=== PATIENT | female | born 1970 | race Caucasian/White ===

== ENCOUNTER 2018-05-09 20:17 | Inpatient (IN) ==
[2018-05-09] MEDS ORDERED: 0.9 % Sodium Chloride 1,000 ML IVC ONE (21:40)
[2018-05-09] MEDS ORDERED: Metoclopramide 10 MG/2 ML VIAL IVP ONE (21:42)
[2018-05-09] MEDS ORDERED: Ondansetron 4 MG/2 ML VIAL IVP ONE (21:42)
[2018-05-09] MEDS ORDERED: cefTRIAXone 1,000 MG in Water for inj. (sterile) 20 ML 10 ML IVPB ONE (21:44)
[2018-05-09 22:28] LABS: Clarity,Urine Clear (Clear); Color,Urine Orange (Yellow)
[2018-05-09 22:33] LABS: RBC,Urine 0-3 per hpf (0-3)
[2018-05-09 22:34] LABS: Bacteria,Urine Few per hpf (None-Few); Hyaline Casts,Urine None Seen per lpf (None-Few); Squamous Epithelial Cell,Urine Few per lpf (None-Few)
[2018-05-09] MEDS ORDERED: Isovue-370 500 ML BOTTLE IVP ONE (22:44)
[2018-05-09 22:53] LABS: Basophils % 0.1 %; Eosinophils % 0.4 %; Hematocrit 39.2 % (35.3-44.9); Hemoglobin 13.2 g/dL (11.5-15.4); Immature Granulocytes % 0.5 % (0-4); Lymphocytes # 0.4 K/mcL (0.6-4.6); Lymphocytes % 4.7 %; Mean Corpuscular HGB Conc 33.7 g/dL (31.6-35.5); Mean Corpuscular Hemoglobin 30.8 pg (28.0-33.3); Mean Corpuscular Volume 91.6 fL (83.0-100.0); Mean Platelet Volume 9.8 fL (9.4-12.4); Monocytes # 0.5 K/mcL (0.0-1.3); Monocytes % 5.8 %; Neutrophils # 7.2 K/mcL (1.6-8.9); Platelet Count 243 K/mcL (140-400); Red Blood Count 4.28 M/mcL (3.82-4.97); Red Cell Distribution Width 12.5 % (11.5-14.5); Segmented Neutrophils % 88.5 %
[2018-05-09 22:59] LABS: Alanine Aminotransferase 219 Units/L (7-52); Albumin 4.3 g/dL (3.5-5.7); Albumin/Globulin Ratio 1.3 (1.1-2.2); Alkaline Phosphatase 188 Units/L (34-104); Aspartate Amino Transferase 229 Units/L (13-39); BUN/Creatinine Ratio 11 (6-26); Bilirubin,Direct 0.2 mg/dL (0.0-0.2); Bilirubin,Indirect 0.6 mg/dL (0.0-1.2); Bilirubin,Total 0.8 mg/dL (0.3-1.0); Blood Urea Nitrogen 8 mg/dL (6-20); Calcium 9.9 mg/dL (8.6-10.3); Carbon Dioxide 23 mEq/L (23-29); Chloride 99 mEq/L (98-107); Creatine Kinase 24 Units/L (30-223); Globulin 3.4 g/dL (2.4-3.5); Glucose 85 mg/dL (70-105); Osmolality,Calculated 276 (280-300); Potassium 3.6 mEq/L (3.5-5.1); Sodium 134 mEq/L (136-145); Total Protein 7.7 g/dL (6.4-8.9); eGFR For Non-African Americans > 60 (> 60)
[2018-05-09 23:00] LABS: Troponin I < 0.03 ng/mL (< 0.04)
[2018-05-09 23:12] LABS: INR 1.3; Prothrombin Time 14.2 Seconds (9.4-12.1); Thyroid Stimulating Hormone 0.956 mcIU/mL (0.340-5.600)
[2018-05-09 23:15] LABS: Activated Partial Thrombo Time 32.6 Seconds (26.0-36.0)
--- NOTE | 2018-05-09 23:51 | Emergency Department Note ---
Addendum entered and electronically signed by Tiffani Johnson 05/10/18 03:55: Due to patient's hypotension after adequate fluid bolus, a central line was placed. Date: 05/10/2018 Time: 309 Indication: Hemodynamic monitoring/Intravenous access Resident: Dr. Tiffani Johnson Attending: Dr. Dylan Rodriguez A time-out was completed verifying correct patient, procedure, site, posit ioning, and special equipment. The patient was placed in a dependent position appropriate for central line placement based on the vein to be cannulated. The patients right neck was prepped and draped in sterile fashion. 1% Lidocaine was used to anesthetize the surrounding skin area. A triple lumen 9-[place] Cordis catheter was introduced into the the internal jugular using the Seldinger technique and under ultrasound guidance. The catheter was threaded smoothly over the guide wire and appropriate blood return was obtained. Each lumen of the catheter was evacuated of air and flushed with sterile saline. The catheter was then sutured in place to the skin and a sterile dressing applied. Perfusion to the extremity distal to the point of catheter insertion was checked and found to be adequate. Attending was present for the entire procedure. Estimated Blood Loss: 2mL The patient tolerated the procedure well and there were no complications. CXR is pending at this time. Original Note: Disposition Clinical Impression: Pyelonephritis Sepsis Qualifiers: Sepsis type: sepsis due to unspecified organism Qualified Code(s): A41.9 - Sepsis, unspecified organism Altered mental status Qualifiers: Altered mental status type: unspecified Qualified Code(s): R41.82 - Altered mental status, unspecified Disposition: Admitted As Inpatient Time of Disposition: 02:13 General Adult HPI - General Chief complaint: ED Dizziness Stated complaint: "Just feel dizzy with a UTI" Time Seen by Provider: 05/09/18 21:02 Source: patient, family Limitations: no limitations Nursing Notes Reviewed: Yes Vital Signs Reviewed: Yes - History of Present Illness HPI Narrative: 47 yo female with PMHx of recent UTI with administration of macrobid and pyridium. Daughter states the patient has not improved with demonstration of the antibiotics and has continued to get worse. The patient has significant back pain and abdominal pain, has been sleeping more, and has not been acting like herself. Daughter states that this has never happened when her mother has had a urinary tract infection before and she became concerned. The patient also has been nauseous and vomiting. Patient is unable to answer questions due to pain and altered mental status at this time. Pain Scale: 0 - Related Data Home Medications Medication Instructions Recorded Confirmed RX: No Known Home Drugs 05/10/18 05/10/18 Allergies Allergy/AdvReac Type Severity Reaction Status Date / Time No Known Allergies Allergy Verified 05/10/18 17:40 Review of Systems: As Per HPI Limitations: ROS unobtainable due to patients medical condition Constitutional: Reports: fever Gastrointestinal: Reports: abdominal pain, nausea, vomiting Genitourinary: Reports: dysuria Musculoskeletal: Reports: back pain Integumentary: Denies: rash Neurological: Reports: headache, paresthesias (Bilateral hand) Past Medical History - Past Medical History Source: obtained from family Medical history: Reports: no medical history Psychiatric history: Reports: no psych history - Social History Smoking Status: Current every day smoker Alcohol use: Reports: rarely Drug use: Reports: marijuana Physical Exam - General Limitations: altered mental status General appearance: alert, other (Moderate discomfort) - Head Head exam: atraumatic, normocephalic - Eye Eye exam: Present: normal appearance, PERRL, EOMI - ENT ENT exam: normal exam, mucous membranes moist - Neck Neck exam: Present: normal inspection. Absent: tenderness, meningismus, lymphadenopathy - Chest Chest inspection: Present: normal inspection. Absent: tenderness - Respiratory Respiratory exam: Present: normal lung sounds bilaterally - Cardiovascular Cardiovascular exam: Present: normal rhythm, tachycardia - Abdominal Exam Abdominal exam: Present: soft, tenderness. Absent: distention, guarding, rebound, rigidity, Bowie's sign, tenderness at McBurney's Point Abdominal tenderness: Present: suprapubic - Extremities Exam Extremities exam: Present: normal inspection. Absent: tenderness, pedal edema - Back Exam Back exam: Present: CVA tenderness (R). Absent: CVA tenderness (L) - Neurological Exam Neurological exam: Present: alert - Skin Skin exam: Present: warm, dry, intact Course Vital Signs Temperature 99.6 F 05/09/18 20:47 Pulse Rate 106 05/09/18 20:47 Respiratory Rate 24 05/09/18 20:47 Blood Pressure 105/69 05/09/18 20:47 O2 Sat by Pulse Oximetry 100 05/09/18 20:47 Temperature 98.5 F 05/11/18 03:48 Pulse Rate 64 05/11/18 06:10 Respiratory Rate 16 05/11/18 06:10 Blood Pressure 100/67 05/11/18 06:10 O2 Sat by Pulse Oximetry 94 05/11/18 06:10 Oxygen Delivery Oxygen Delivery Room Air Procedures - Lumbar Puncture Consent Obtained: written consent Time Out Performed: Yes Patient Position: upright Skin Prep: Povidone-Iodine 1% Local Anesthetic: lidocaine 1% Amount of anesthesia used (mL): 4 Spinal Needle Gauge: 20G Interspace Used: L3-L4 Fluid Initially Obtained: clear Complications: bleeding Medical Decision Making - MDM Narrative Medical decision making narrative: Patient appears to be in significant pain and is slightly altered. She does meet SIRS criteria with fever and tachycardia. We will obtain basic lab work, EKG, troponin, urinalysis. 2300 - lab work is remarkable for elevated liver enzymes. Urine does not demonstrate signs of infection but this could be due to her use of antibiotics. We will obtain a CT scan of the abdomen to look for kidney stone, abscess, other sources of infection. 0025 - CT scan of the abdomen did not demonstrate abscess, stone, or other source of infection. Pt is still febrile and tachycardic but is more alert and answers questions appropriately now. Pt is agreeable with admission at this time and is also agreeable with LP as there is no clear source of infection. 0125 - LP successful and sent to lab at this time. Rocephin has been started. 0200 - LP results are negative for meningitis. Hospitalist has been paged for admission. 0210 - Pt has been admitted to the hospitalist at this time for likely pyelonephritis. - Medical Records Medical records reviewed: Yes I reviewed the patient's medical records. - Lab Data Lab results reviewed: Yes I reviewed the patient's lab results. Result diagrams: 05/09/18 22:17 05/10/18 11:26 Lab Results 05/09/18 05/09/18 05/09/18 Range/Units 21:36 22:17 22:17 WBC (4.3-11.1) K/mcL RBC (3.82-4.97) M/mcL Hgb (11.5-15.4) g/dL Hct (35.3-44.9) % MCV (83.0-100.0) fL MCH (28.0-33.3) pg MCHC (31.6-35.5) g/dL RDW (11.5-14.5) % Plt Count (140-400) K/mcL MPV (9.4-12.4) fL Immature Gran % (0-4) % Seg Neutrophils % % Lymphocytes % % Monocytes % % Eosinophils % % Basophils % % Neutrophils # (1.6-8.9) K/mcL Lymphocytes # (0.6-4.6) K/mcL Monocytes # (0.0-1.3) K/mcL Eosinophils # (0.0-0.6) K/mcL Basophils # (0.0-0.2) K/mcL PT 14.2 H (9.4-12.1) Seconds INR 1.3 APTT 32.6 (26.0-36.0) Seconds Sodium (136-145) mEq/L Potassium (3.5-5.1) mEq/L Chloride (98-107) mEq/L Carbon Dioxide (23-29) mEq/L BUN (6-20) mg/dL Creatinine (0.60-1.20) mg/dL Est GFR ( Amer) (> 60) Est GFR (Non-Af Amer) (> 60) BUN/Creatinine Ratio (6-26) Glucose (70-105) mg/dL Calculated Osmolality (280-300) Lactic Acid (0.5-2.2) mmol/L Calcium (8.6-10.3) mg/dL Total Bilirubin (0.3-1.0) mg/dL Direct Bilirubin (0.0-0.2) mg/dL Indirect Bilirubin (0.0-1.2) mg/dL AST (13-39) Units/L ALT (7-52) Units/L Alkaline Phosphatase (34-104) Units/L Ammonia 43 (16-53) mcmol/L Creatine Kinase (30-223) Units/L Troponin I (< 0.04) ng/mL Serum Total Protein (6.4-8.9) g/dL Albumin (3.5-5.7) g/dL Globulin (2.4-3.5) g/dL Albumin/Globulin Ratio (1.1-2.2) TSH (0.340-5.600) mcIU/mL Ur Specimen Adequacy See below A Urine Color [place] A (Yellow) Urine Clarity Clear (Clear) Urine pH TNP Ur Specific [place] TNP Urine Protein TNP Urine Glucose (UA) TNP Urine Ketones TNP Urine Blood TNP Urine Nitrite TNP Urine Bilirubin TNP Urine Urobilinogen TNP Ur Leukocyte Esterase TNP Urine Microscopic RBC 0-3 (0-3) per hpf Ur Squamous Epith Cells Few (None-Few) per lpf Urine Bacteria Few (None-Few) per hpf Hyaline Casts None Seen (None-Few) per lpf Ur Culture Indicated? NO (NO) CSF Volume mL CSF Appearance (Clear) CSF Color (Colorless) CSF RBC (0.000 - 0.002) M/mcL CSF Tot Nucleated Cells (0-5) TNC/mcL CSF Seg Neutrophils CSF Band Neutrophils % CSF Lymphocytes % CSF Monocytes % CSF Eosinophils % CSF Basophils % CSF Other Cells % CSF Glucose (40-70) mg/dL CSF Xanth Comm (Not Observe) CSF Total Protein (15-45) mg/dL 05/09/18 05/09/18 05/09/18 Range/Units 22:17 22:17 22:53 WBC 8.1 (4.3-11.1) K/mcL RBC 4.28 (3.82-4.97) M/mcL Hgb 13.2 (11.5-15.4) g/dL Hct 39.2 (35.3-44.9) % MCV 91.6 (83.0-100.0) fL MCH 30.8 (28.0-33.3) pg MCHC 33.7 (31.6-35.5) g/dL RDW 12.5 (11.5-14.5) % Plt Count 243 (140-400) K/mcL MPV 9.8 (9.4-12.4) fL Immature Gran % 0.5 (0-4) % Seg Neutrophils % 88.5 % Lymphocytes % 4.7 % Monocytes % 5.8 % Eosinophils % 0.4 % Basophils % 0.1 % Neutrophils # 7.2 (1.6-8.9) K/mcL Lymphocytes # 0.4 L (0.6-4.6) K/mcL Monocytes # 0.5 (0.0-1.3) K/mcL Eosinophils # 0.0 (0.0-0.6) K/mcL Basophils # 0.0 (0.0-0.2) K/mcL PT (9.4-12.1) Seconds INR APTT (26.0-36.0) Seconds Sodium 134 L (136-145) mEq/L Potassium 3.6 (3.5-5.1) mEq/L Chloride 99 (98-107) mEq/L Carbon Dioxide 23 (23-29) mEq/L BUN 8 (6-20) mg/dL Creatinine 0.73 (0.60-1.20) mg/dL Est GFR ( Amer) > 60 (> 60) Est GFR (Non-Af Amer) > 60 (> 60) BUN/Creatinine Ratio 11 (6-26) Glucose 85 (70-105) mg/dL Calculated Osmolality 276 L (280-300) Lactic Acid 0.7 (0.5-2.2) mmol/L Calcium 9.9 (8.6-10.3) mg/dL Total Bilirubin 0.8 (0.3-1.0) mg/dL Direct Bilirubin 0.2 (0.0-0.2) mg/dL Indirect Bilirubin 0.6 (0.0-1.2) mg/dL AST 229 H (13-39) Units/L ALT 219 H (7-52) Units/L Alkaline Phosphatase 188 H (34-104) Units/L Ammonia (16-53) mcmol/L Creatine Kinase 24 L (30-223) Units/L Troponin I < 0.03 (< 0.04) ng/mL Serum Total Protein 7.7 (6.4-8.9) g/dL Albumin 4.3 (3.5-5.7) g/dL Globulin 3.4 (2.4-3.5) g/dL Albumin/Globulin Ratio 1.3 (1.1-2.2) TSH 0.956 (0.340-5.600) mcIU/mL Ur Specimen Adequacy Urine Color (Yellow) Urine Clarity (Clear) Urine pH Ur Specific [place] Urine Protein Urine Glucose (UA) Urine Ketones Urine Blood Urine Nitrite Urine Bilirubin Urine Urobilinogen Ur Leukocyte Esterase Urine Microscopic RBC (0-3) per hpf Ur Squamous Epith Cells (None-Few) per lpf Urine Bacteria (None-Few) per hpf Hyaline Casts (None-Few) per lpf Ur Culture Indicated? (NO) CSF Volume mL CSF Appearance (Clear) CSF Color (Colorless) CSF RBC (0.000 - 0.002) M/mcL CSF Tot Nucleated Cells (0-5) TNC/mcL CSF Seg Neutrophils CSF Band Neutrophils % CSF Lymphocytes % CSF Monocytes % CSF Eosinophils % CSF Basophils % CSF Other Cells % CSF Glucose (40-70) mg/dL CSF Xanth Comm (Not Observe) CSF Total Protein (15-45) mg/dL 05/10/18 Range/Units 01:15 WBC (4.3-11.1) K/mcL RBC (3.82-4.97) M/mcL Hgb (11.5-15.4) g/dL Hct (35.3-44.9) % MCV (83.0-100.0) fL MCH (28.0-33.3) pg MCHC (31.6-35.5) g/dL RDW (11.5-14.5) % Plt Count (140-400) K/mcL MPV (9.4-12.4) fL Immature Gran % (0-4) % Seg Neutrophils % % Lymphocytes % % Monocytes % % Eosinophils % % Basophils % % Neutrophils # (1.6-8.9) K/mcL Lymphocytes # (0.6-4.6) K/mcL Monocytes # (0.0-1.3) K/mcL Eosinophils # (0.0-0.6) K/mcL Basophils # (0.0-0.2) K/mcL PT (9.4-12.1) Seconds INR APTT (26.0-36.0) Seconds Sodium (136-145) mEq/L Potassium (3.5-5.1) mEq/L Chloride (98-107) mEq/L Carbon Dioxide (23-29) mEq/L BUN (6-20) mg/dL Creatinine (0.60-1.20) mg/dL Est GFR ( Amer) (> 60) Est GFR (Non-Af Amer) (> 60) BUN/Creatinine Ratio (6-26) Glucose (70-105) mg/dL Calculated Osmolality (280-300) Lactic Acid (0.5-2.2) mmol/L Calcium (8.6-10.3) mg/dL Total Bilirubin (0.3-1.0) mg/dL Direct Bilirubin (0.0-0.2) mg/dL Indirect Bilirubin (0.0-1.2) mg/dL AST (13-39) Units/L ALT (7-52) Units/L Alkaline Phosphatase (34-104) Units/L Ammonia (16-53) mcmol/L Creatine Kinase (30-223) Units/L Troponin I (< 0.04) ng/mL Serum Total Protein (6.4-8.9) g/dL Albumin (3.5-5.7) g/dL Globulin (2.4-3.5) g/dL Albumin/Globulin Ratio (1.1-2.2) TSH (0.340-5.600) mcIU/mL Ur Specimen Adequacy Urine Color (Yellow) Urine Clarity (Clear) Urine pH Ur Specific [place] Urine Protein Urine Glucose (UA) Urine Ketones Urine Blood Urine Nitrite Urine Bilirubin Urine Urobilinogen Ur Leukocyte Esterase Urine Microscopic RBC (0-3) per hpf Ur Squamous Epith Cells (None-Few) per lpf Urine Bacteria (None-Few) per hpf Hyaline Casts (None-Few) per lpf Ur Culture Indicated? (NO) CSF Volume 3.5 mL CSF Appearance Clear (Clear) CSF Color Colorless (Colorless) CSF RBC < 0.002 (0.000 - 0.002) M/mcL CSF Tot Nucleated Cells < 3 (0-5) TNC/mcL CSF Seg Neutrophils TNP CSF Band Neutrophils % TNP CSF Lymphocytes % TNP CSF Monocytes % TNP CSF Eosinophils % TNP CSF Basophils % TNP CSF Other Cells % TNP CSF Glucose 67 (40-70) mg/dL CSF Xanth Comm Not Observed (Not Observe) CSF Total Protein 25 (15-45) mg/dL - Radiology Data Radiology results reviewed: Yes I reviewed the patient's radiology results. - EKG Data EKG #1 EKG attestation: Yes I reviewed and interpreted this EKG. EKG results narrative: EKG obtained at 22:14 on 05/09/2018 Heart rate 10 7 bpm, MO interval 141, QRS duration 85, QT 308, QTC 411 Sinus tachycardia without any ST segment elevations or depressions. No other T- wave abnormalities. Unchanged when compared to previous dated 05/24/2017. Critical Care Time Critical Care Time: Yes Total Critical Care Time: 62 Attestation: The high probability of a clinically significant, sudden or life threatening deterioration of the cardiovascular system(s) required my full and direct attention, intervention and personal management. The aggregate critical care time was 62 minutes. This time is in addition to time spent performing reported procedures but includes the following: x Data Review and interpretation x Patient assessment and monitoring of vital signs x Documentation x Medication orders and management Attestation Statement - Attestation Attestation: I, Dylan Rodriguez, examined this patient and my medical decision-making was reviewed with the CLIENT CARE SPECIALIST/PA/Advanced Practice Nurse/Resident Physician. I agree with the documented findings, disposition and treatment plan as described except to the extent set forth below. 47-year-old female brought to emergency department for evaluation of fever and lightheadedness. Daughter states patient was recently diagnosed with urinary tract infection within the past 2-3 days, has been taking nitrofurantoin twice a day since that time without any improvement of her symptoms. Patient had become progressively more weak, fatigued and confused. During evaluation emergency department the patient has a headache, she has a difficult time answering questions appropriately. Daughter is in the room giving history. No other recent trauma or changes in her medications. Patient taking Pyridium at home. Urinalysis shows a possible urinary tract infection however it is not definit lana. CT of the abdomen and pelvis does not show other evidence of acute surgical pathology. CT of the head did not show acute hemorrhage or other abnormality. We obtained a lumbar puncture after a discussion of risks and benefits and verbal and written consent obtained. This did not show evidence of meningitis. I was present during the entire procedure. Patient MedSurg criteria however we did not have an obvious identified source. We gave ceftriaxone treat possible pyelonephritis. She was admitted to the hospitalist. While she was still in the emergency department her blood pressure started to drop. She was given a liter of fluids which mildly improved her blood pressure however she will likely still require vasopressor medications. Central venous catheter was placed after a discussion of the risks and benefits and verbal and written consent obtained. Central line was placed by resident and I was present during the entire procedure. Patient will be admitted to the hospitalist for further care and evaluation.
[2018-05-10] MEDS ORDERED: 0.9 % Sodium Chloride 1,000 ML IVC ONE ×2 (00:27→02:33)
[2018-05-10] MEDS ORDERED: Ibuprofen 600 MG TABLET PO ONE (00:27)
[2018-05-10 01:41] LABS: Red Blood Cell,CSF < 0.002 M/mcL
[2018-05-10] MEDS ORDERED: *HR* FentaNYL (PF) 100 MCG/2 ML VIAL IVP ONE (01:52)
[2018-05-10 02:01] LABS: Glucose,CSF 67 mg/dL (40-70); Total Protein,CSF 25 mg/dL (15-45)
[2018-05-10 02:07] LABS: Appearance,CSF Clear (Clear)
[2018-05-10] MEDS ORDERED: 0.9 % Sodium Chloride 1,000 ML ONE (02:36)
[2018-05-10] MEDS ORDERED: Acetaminophen 325 MG TABLET PO PRN (02:48)
[2018-05-10] MEDS ORDERED: Naloxone 0.4 MG/ML INJ IVP PRN (02:48)
[2018-05-10] MEDS ORDERED: Ringers Solution, Lactated 1,000 ML IVC SCH (03:00)
--- NOTE | 2018-05-10 03:54 | Internal Med History&Physical ---
<Madelyn Magdaleno M - Last Filed: 05/10/18 04:08> Date of Encounter: 05/10/18 Time of Encounter: 03:30 Assessment and Plan (1) Sepsis Current visit: Yes Status: Acute Patient has fevers, tachycardia, tachypnea Likely due to UTI, recently diagnosed 3 days ago, taking macrobid Urine culture and blood cultures pending Lactate normal No other signs of infection; CXR no acute process, LP negative for meningitis Patient became hypotensive despite IVFs, started on levophed S/p 2L IVFs, continue maintenance fluids Continue IV Rocephin for presumed UTI NPO as patient is requiring presser support Qualifiers: Sepsis type: sepsis due to unspecified organism Qualified Code(s): A41.9 - Sepsis, unspecified organism (2) Acute encephalopathy Current visit: Yes Status: Resolved Likely metabolic due to sepsis Resolved. Nonfocal examination, AAOx3 CT head without acute intracranial abnormality Ammonia level and TSH normal, no electrolyte abn LP negative for meningitis Check urine drug screen, acetaminophen level (3) Urinary tract infection Current visit: Yes Status: Acute CT A/P shows no urinary stones, hydronephrosis, or pyelonephritis Received 3 days of Macrobid for UTI dx at urgent care Urine culture pending Continue IV Rocephin Monitor urine output Qualifiers: Urinary tract infection type: acute cystitis Hematuria presence: with hematuria Qualified Code(s): N30.01 - Acute cystitis with hematuria (4) Transaminitis Current visit: Yes Status: Acute No history of liver disease AST 229, ALT 219, alk phos 188. Patient has no history of alcohol abuse Will check liver ultrasound Check hepatitis panel (5) DVT prophylaxis Current visit: Yes Status: Acute SQ heparin Internal Medicine - H&P: HPI Chief complaint: dizzy Admitted From: Emergency Dept History of present illness: Ms. Mario is a 47 year old female with no past medical history presenting with chief complaint of dizziness for 1 day. 3 days ago, patient was diagnosed with a urinary tract infection at urgent care. She states at that time she complains of dysuria and hematuria. Denies abnormal urinary or vaginal discharge. She also had decreased appetite. No diarrhea. She was started on Macrobid and Pyridium. No history of urinary tract infections. Yesterday was day 3 of her antibiotics. She states she woke up feeling dizzy that worsened with movement. Her daughter states that she has not been acting herself. She also complains of lower back pain. She denies any dysuria at this time. She denies abdominal pain. She complains of fevers and chills with temperature as high as 101. She also has nausea but no vomiting. When the patient arrived to the emergency department, she was noted to have altered mental status and was unable to answer questions appropriately. Initial vitals show temperature of 99.6, tachycardia with heart rate 106, respiratory rate 24, normotensive blood pressure. Patient did have a fever of 102.6 and received acetaminophen. Septic workup was initiated. She does have elevated liver enzymes. Urinalysis shows no evidence of infection however she has been on antibiotics for urinary tract infection. Urine culture will be sent. CT abdomen and pelvis was obtained and results showed no acute process, no urinary stones or hydronephrosis. No pyelonephritis. Chest x-ray showed no acute cardiopulmonary abnormality. Head CT was obtained as the patient has new altered mental status. Results showed no acute intracranial abnormality. The patient also had a lumbar puncture done as there is no clear source of infection. Results were negative for meningitis. Patient received a dose of IV Rocephin. The patient became hypotensive and was not fluid responsive. A right IJ vein central line was placed in the emergency department. Patient will be started on levothyroid for blood pressure support. Patient admitted for further management of sepsis secondary to urinary tract infection. Patient was seen and evaluated at bedside. Patient's altered mental status is improved. She is alert and oriented 3. She is answering questions appropriately. She states she does feel better at this time. States dizziness is resolved. She has no other acute complaints. Past Med Surg Social Fam HX - Past Medical History Attestation: Yes The following information was validated with the patient. Source: patient Medical history: no medical history Psychiatric history: no psych history - Social History Smoking Status: Current every day smoker Alcohol use: rarely Drug use: marijuana Internal Medicine - H&P: Meds RX: No Known Home Drugs 05/10/18 [History] Allergy/AdvReac Type Severity Reaction Status Date / Time No Known Allergies Allergy Verified 05/24/17 13:56 All Systems PM: A 10-system review of systems was performed and is negative for pertinent findings except as documented above in the HPI. - Constitutional Constitutional: anorexia, chills, fever(s) - EENT Eyes: no change in vision Nose, mouth and throat: dry mouth, no dysphagia, no nasal congestion, no sore throat - Cardiovascular Cardiovascular ROS IM: no chest pain, no diaphoresis, no dyspnea - Respiratory Respiratory: no cough, no dyspnea - Gastrointestinal Gastrointestinal: nausea, no abdominal pain, no diarrhea, no vomiting - Genitourinary Genitourinary: difficulty voiding, dysuria, hematuria, no vaginal discharge - Musculoskeletal Musculoskeletal ROS IM: back pain, no muscle weakness - Neurological Neurological ROS: confusion, dizziness, no headache(s) - Psychiatric Psychiatric: confusion - Constitutional Vitals: Temp Pulse Resp BP Pulse Ox 98.1 F 77 17 88/67 97 05/10/18 02:35 05/10/18 03:45 05/10/18 03:45 05/10/18 03:45 05/10/18 03:45 General appearance: Present: A&O X 3, pleasant, no acute distress Exam: Head: atraumatic, normocephalic Eyes: PERRL, EOMI, normal conjunctiva, no scleral icterus ENT: dry mucous membranes Neck: trachea midline, right IJ central line present Chest: symmetrical chest rise Cardiovascular: RRR, no murmur Respiratory: Lungs clear to auscultation bilaterally Abdomen: soft, nontender, nondistended Extremities: moves all four extremities, normal capillary refill, no calf tenderness, no pedal edema Neuro: AAOx3, answering questions appropriately, strenght equal bilaterally, CN II-XII intact Psych: normal mood and affect Skin: warm, dry Internal Med - H&P Results - Labs CBC & Chem 7: 05/09/18 22:17 05/09/18 22:17 Labs: Short CBC 05/09/18 Range/Units 22:17 WBC 8.1 (4.3-11.1) K/mcL Hgb 13.2 (11.5-15.4) g/dL Hct 39.2 (35.3-44.9) % Plt Count 243 (140-400) K/mcL Neutrophils # 7.2 (1.6-8.9) K/mcL BMP 05/09/18 22:17 Sodium 134 L Potassium 3.6 Chloride 99 Carbon Dioxide 23 BUN 8 Creatinine 0.73 Glucose 85 Calcium 9.9 Cardiac Enzymes 03/31/19 Range/Units 22:17 Troponin I < 0.03 (< 0.04) ng/mL Liver Function 05/09/18 Range/Units 22:17 Total Bilirubin 0.8 (0.3-1.0) mg/dL Direct Bilirubin 0.2 (0.0-0.2) mg/dL AST 229 H (13-39) Units/L ALT 219 H (7-52) Units/L Alkaline Phosphatase 188 H (34-104) Units/L Albumin 4.3 (3.5-5.7) g/dL Urine 05/09/18 Range/Units 21:36 Urine Color [place] A (Yellow) Urine Clarity Clear (Clear) Urine pH TNP Ur Specific [place] TNP Urine Protein TNP Urine Glucose (UA) TNP - Impressions ITS Impressions Chest X-Ray 05/09/18 21:41 IMPRESSION: No acute abnormality D/ / Leonid Zuniga / Leonid Zuniga Interpreting Provider: Leonid Zuniga Head CT 05/09/18 21:41 IMPRESSION: No acute intracranial abnormality. D/ / Yonny Balderas / Yonny Balderas Interpreting Provider: Yonny Balderas Abdomen/Pelvis CT 05/09/18 22:44 IMPRESSION: 1. No acute process within the abdomen or pelvis. 2. No urinary stones or hydronephrosis. No CT evidence of hydronephrosis or pyelonephritis. D/ / Mark Baldwin MD / Mark Baldwin MD Interpreting Provider: Mark Baldwin MD <Hanny Montoya - Last Filed: 05/10/18 05:30> Date of Encounter: 05/10/18 All Systems PM: A 10-system review of systems was performed and is negative for pertinent findings except as documented above in the HPI. - Constitutional Vitals: Temp Pulse Resp BP Pulse Ox 98.2 F 80 16 95/59 97 05/10/18 04:55 05/10/18 04:55 05/10/18 04:55 05/10/18 04:55 05/10/18 04:55 Internal Med - H&P Results - Labs CBC & Chem 7: 05/09/18 22:17 05/09/18 22:17 Labs: Short CBC 05/09/18 Range/Units 22:17 WBC 8.1 (4.3-11.1) K/mcL Hgb 13.2 (11.5-15.4) g/dL Hct 39.2 (35.3-44.9) % Plt Count 243 (140-400) K/mcL Neutrophils # 7.2 (1.6-8.9) K/mcL BMP 05/09/18 22:17 Sodium 134 L Potassium 3.6 Chloride 99 Carbon Dioxide 23 BUN 8 Creatinine 0.73 Glucose 85 Calcium 9.9 Cardiac Enzymes 05/09/18 Range/Units 22:17 Troponin I < 0.03 (< 0.04) ng/mL Liver Function 05/09/18 Range/Units 22:17 Total Bilirubin 0.8 (0.3-1.0) mg/dL Direct Bilirubin 0.2 (0.0-0.2) mg/dL AST 229 H (13-39) Units/L ALT 219 H (7-52) Units/L Alkaline Phosphatase 188 H (34-104) Units/L Albumin 4.3 (3.5-5.7) g/dL Urine 05/09/18 Range/Units 21:36 Urine Color [place] A (Yellow) Urine Clarity Clear (Clear) Urine pH TNP Ur Specific [place] TNP Urine Protein TNP Urine Glucose (UA) TNP - Impressions ITS Impressions Chest X-Ray 05/09/18 21:41 IMPRESSION: No acute abnormality D/ / Leonid Zuniga / Leonid Zuniga Interpreting Provider: Leonid Zuniga Head CT 05/09/18 21:41 IMPRESSION: No acute intracranial abnormality. D/ / Yonny Balderas / Yonny Balderas Interpreting Provider: Yonny Balderas Abdomen/Pelvis CT 05/09/18 22:44 IMPRESSION: 1. No acute process within the abdomen or pelvis. 2. No urinary stones or hydronephrosis. No CT evidence of hydronephrosis or pyelonephritis. D/ / Mark Baldwin MD / Mark Baldwin MD Interpreting Provider: Mark Baldwin MD Chest X-Ray 05/10/18 03:32 IMPRESSION: No acute cardiopulmonary abnormality. CVC in place, no apparent complication. D/ / Bandar Perdomo MD / Bandar Perdomo MD Interpreting Provider: Bandar Perdomo MD - Attending Attestation I performed a history and physical exam of the patient and discussed management with the resident. I reviewed the resident's note and agree with the documented findings and plan of care. 47 year old woman who has been undergoing treatment for a UTI diagnosed in urgent care for the past few days with nitrofurantoin and phenazopyridine for symptomatic relief who developed malaise, ongoing suprapbuic pain, dysuria and found hypotensive with altered mental status. Noted to quickly progress into a septic shock state requiring CVC and vasopressor support. No reported PMHx. Family history reviewed and found non-contributory. Will continue fliud resuscitation, norepinephrine to be titrated down as BP permits, ceftriaxone empirically and send urine/blood cultures (UA unable to be done due to pigment from the phenazopyridine). CCT 60mins.
[2018-05-10] MEDS: Norepinephrine 4 MG in D5% in Water 250 ML IVC SCH (04:24)
[2018-05-10] MEDS: *HR* Heparin 5,000 UNIT/ML VIAL SQ SCH ×2 (06:59→17:51)
[2018-05-10] MEDS: traMADol 50 MG TABLET PO PRN (08:03)
[2018-05-10] MEDS: cefTRIAXone 1,000 MG in Water for inj. (sterile) 20 ML 10 ML IVP SCH (08:03)
[2018-05-10] MEDS: Pantoprazole 40 MG VIAL IVP SCH (08:04)
[2018-05-10] MEDS: Ondansetron 4 MG/2 ML VIAL IVP PRN (08:30)
--- NOTE | 2018-05-10 09:00 | Event Note ---
Date of Encounter: 05/10/18 Time of Encounter: 11:00 Patient seen and evaluated by nocturnalist earlier this morning and also by my self. Briefly, patient is a 47-year-old female who has recently been treated as an outpatient for UTI who presented due to dizziness and not feeling herself. In the ER, patient was found to be febrile and hypotensive unresponsive to fluid resuscitation therefore vasopressor initiated. Chest x-ray and abdominal CT with no acute findings and cultures from lumbar spinal tap pending. Blood and urine cultures pending as well. Will continue IV ceftriaxone for UTI monitoring in progressive unit.
[2018-05-10 12:17] LABS: Acetaminophen < 10 mcg/mL (10-20); Alanine Aminotransferase 115 Units/L (7-52); Albumin 3.1 g/dL (3.5-5.7); Albumin/Globulin Ratio 1.3 (1.1-2.2); Alkaline Phosphatase 130 Units/L (34-104); Aspartate Amino Transferase 82 Units/L (13-39); BUN/Creatinine Ratio 15 (6-26); Bilirubin,Direct 0.3 mg/dL (0.0-0.2); Bilirubin,Indirect 0.3 mg/dL (0.0-1.2); Bilirubin,Total 0.6 mg/dL (0.3-1.0); Blood Urea Nitrogen 8 mg/dL (6-20); Carbon Dioxide 23 mEq/L (23-29); Chloride 108 mEq/L (98-107); Globulin 2.3 g/dL (2.4-3.5); Glucose 82 mg/dL (70-105); Magnesium 1.8 mg/dL (1.6-2.6); Osmolality,Calculated 281 (280-300); Potassium 3.5 mEq/L (3.5-5.1); Sodium 137 mEq/L (136-145); Total Protein 5.4 g/dL (6.4-8.9); Troponin I < 0.03 ng/mL (< 0.04); eGFR For Non-African Americans > 60 (> 60)
[2018-05-10] MEDS: Ringers Solution, Lactated 1,000 ML IVC SCH ×2 (12:45→22:20)
[2018-05-10] MEDS: *HR* OxyCODONE Immed Rel 5 MG TABLET PO PRN ×2 (12:45→19:57)
[2018-05-10 15:32] LABS: Hepatitis B Surface Antigen Nonreactive (Nonreactive)
[2018-05-10 15:56] LABS: Hepatitis A Antibody IgM Nonreactive (Nonreactive)
[2018-05-10 15:57] LABS: Hepatitis B Core IgM Nonreactive (Nonreactive)
[2018-05-10 15:59] LABS: Hepatitis C Virus Antibody Nonreactive (Nonreactive)
--- NOTE | 2018-05-10 19:19 | Electrocardiograph Report ---
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
[2018-05-11] MEDS: Ibuprofen 600 MG TABLET PO PRN ×2 (01:13→16:00)
[2018-05-11] MEDS: *HR* Heparin 5,000 UNIT/ML VIAL SQ SCH ×2 (06:18→16:56)
[2018-05-11] MEDS: Norepinephrine 4 MG in D5% in Water 250 ML IVC SCH (06:18)
[2018-05-11] MEDS: traMADol 50 MG TABLET PO PRN ×2 (09:11→19:48)
[2018-05-11] MEDS: cefTRIAXone 1,000 MG in Water for inj. (sterile) 20 ML 10 ML IVP SCH (09:12)
[2018-05-11] MEDS: Pantoprazole 40 MG VIAL IVP SCH (09:12)
[2018-05-11] MEDS: Ondansetron 4 MG/2 ML VIAL IVP PRN (09:14)
[2018-05-11 09:23] LABS: Amphetamine Screen,Urine Positive ng/mL (Cutoff=1000); Barbiturate Screen,Urine Negative ng/mL (Cutoff=200); Benzodiazepines Screen,Urine Negative ng/mL (Cutoff=200); Cannabinoid Screen,Urine Positive ng/mL (Cutoff = 50); Cocaine Screen,Urine Negative ng/mL (Cutoff= 300); Opiate Screen,Urine Negative ng/mL (Cutoff=300); Phencyclidine Screen,Urine Negative ng/mL (Cutoff=25)
[2018-05-11 09:43] LABS: Basophils % 0.2 %; Eosinophils # 0.2 K/mcL (0.0-0.6); Eosinophils % 3.4 %; Hematocrit 31.8 % (35.3-44.9); Immature Granulocytes % 0.5 % (0-4); Lymphocytes # 0.6 K/mcL (0.6-4.6); Lymphocytes % 9.2 %; Mean Corpuscular HGB Conc 33.3 g/dL (31.6-35.5); Mean Corpuscular Hemoglobin 30.9 pg (28.0-33.3); Mean Corpuscular Volume 92.7 fL (83.0-100.0); Mean Platelet Volume 9.7 fL (9.4-12.4); Monocytes # 0.7 K/mcL (0.0-1.3); Monocytes % 10.9 %; Neutrophils # 4.5 K/mcL (1.6-8.9); Platelet Count 180 K/mcL (140-400); Red Blood Count 3.43 M/mcL (3.82-4.97); Red Cell Distribution Width 12.6 % (11.5-14.5); Segmented Neutrophils % 75.8 %
[2018-05-11 09:51] LABS: Hemoglobin 10.6 g/dL (11.5-15.4)
--- NOTE | 2018-05-11 09:54 | Internal Med Progress Note ---
Hospitalist Progress Note - Encounter Date of Encounter: 05/11/18 Time of Encounter: 11:00 - Subjective Interval History: Patient is a 47-year-old female with recent diagnosis and treatment for UTI as an outpatient who presented due to worsening symptoms and found to be in septic shock secondary to UTI. Patient with a MAXIMUM TEMPERATURE of 100.7 overnight - Exam Vitals: Temp Pulse Resp BP Pulse Ox 98.0 F 72 16 103/79 96 05/11/18 07:45 05/11/18 07:45 05/11/18 07:45 05/11/18 07:45 05/11/18 07:45 Exam: Gen.: Nonacute distress, alert and oriented 3 ENT: Mucosal membranes moist Respiratory: Lungs are clear to auscultation bilaterally without any wheezing rhonchi or rales Cardiovascular: Normal S1 and S2 regular rate rhythm no murmurs rubs or gallops Abdomen: Soft, nontender and nondistended with positive bowel sounds Extremities: No lower extremity edema Skin: Normal color - Assessment and Plan (1) Urinary tract infection Current Visit: Yes Status: Acute Assessment and Plan: Patient with dysuria and was diagnosed with urinary tract infection and started on Macrobid/Pyridium as an outpatient without any improvement She presented in septic shock which has since resolved after starting IV antibiotics. Continue IV ceftriaxone. (2) Septic shock Current Visit: Yes Status: Resolved Assessment and Plan: Resolved; secondary to the above (3) Transaminitis Current Visit: Yes Status: Acute Assessment and Plan: Elevated liver enzymes secondary to septic shock above (4) Acute encephalopathy Current Visit: Yes Status: Resolved Assessment and Plan: Resolved; continue to monitor DVT Prophylaxis: Subcutaneous heparin - Time Spent with Patient Total time spent is greater than 50% in coordination of care (as documented) at patient's floor/unit and/or counseling patient: Internal Medicine: Result - Labs CBC & Chem 7: 05/11/18 09:39 05/11/18 09:39 Labs: BMP 05/10/18 11:26 Sodium 137 Potassium 3.5 Chloride 108 H Carbon Dioxide 23 BUN 8 Creatinine 0.53 L Glucose 82 Calcium 8.0 L Cardiac Enzymes 05/10/18 Range/Units 11:26 Troponin I < 0.03 (< 0.04) ng/mL Liver Function 05/10/18 Range/Units 11:26 Total Bilirubin 0.6 (0.3-1.0) mg/dL Direct Bilirubin 0.3 H (0.0-0.2) mg/dL AST 82 H (13-39) Units/L ALT 115 H (7-52) Units/L Alkaline Phosphatase 130 H (34-104) Units/L Albumin 3.1 L (3.5-5.7) g/dL Urine 05/09/18 Range/Units 21:36 Urine Color [place] A (Yellow) Urine Clarity Clear (Clear) Urine pH TNP Ur Specific [place] TNP Urine Protein TNP Urine Glucose (UA) TNP - ABG Interpretation ABG results: PT/INR, D-dimer PT 14.2 Seconds (9.4-12.1) H 05/09/18 22:17 - Impressions Impressions Abdomen/Pelvis CT 05/09/18 22:44 IMPRESSION: 1. No acute process within the abdomen or pelvis. 2. No urinary stones or hydronephrosis. No CT evidence of pyelonephritis. D/ / 05/10/2018 07:10:35 Mark Baldwin MD / [facility] Interpreting Provider: Mark Baldwin MD Consult Discharge Plan - Plan Referrals: NONE,PCP [Primary Care Provider] - (1) Urinary tract infection Qualifiers: Urinary tract infection type: acute cystitis Hematuria presence: with hematuria Qualified Code(s): N30.01 - Acute cystitis with hematuria
[2018-05-11] MEDS: *HR* OxyCODONE Immed Rel 5 MG TABLET PO PRN (09:56)
[2018-05-11 10:10] LABS: BUN/Creatinine Ratio 9 (6-26); Blood Urea Nitrogen 5 mg/dL (6-20); Calcium 8.4 mg/dL (8.6-10.3); Carbon Dioxide 24 mEq/L (23-29); Chloride 109 mEq/L (98-107); Glucose 105 mg/dL (70-105); Osmolality,Calculated 282 (280-300); Potassium 3.3 mEq/L (3.5-5.1); Sodium 137 mEq/L (136-145); eGFR For Non-African Americans > 60 (> 60)
[2018-05-11] MEDS ORDERED: *HR* Promethazine 25 MG/ML VIAL IVP PRN (14:13)
[2018-05-11 14:29] LABS: Albumin 3.3 g/dL (3.5-5.7); Albumin/Globulin Ratio 1.3 (1.1-2.2); Bilirubin,Direct 0.2 mg/dL (0.0-0.2); Bilirubin,Indirect 0.3 mg/dL (0.0-1.2); Bilirubin,Total 0.5 mg/dL (0.3-1.0); Globulin 2.5 g/dL (2.4-3.5); Total Protein 5.8 g/dL (6.4-8.9)
[2018-05-12] MEDS: Ibuprofen 600 MG TABLET PO PRN (03:52)
[2018-05-12] MEDS: *HR* Heparin 5,000 UNIT/ML VIAL SQ SCH (06:06)
[2018-05-12] MEDS: cefTRIAXone 1,000 MG in Water for inj. (sterile) 20 ML 10 ML IVP SCH (08:43)
[2018-05-12 10:03] LABS: Basophils % 0.2 %; Eosinophils # 0.2 K/mcL (0.0-0.6); Eosinophils % 3.5 %; Hematocrit 31.7 % (35.3-44.9); Hemoglobin 10.2 g/dL (11.5-15.4); Immature Granulocytes % 0.2 % (0-4); Lymphocytes # 0.7 K/mcL (0.6-4.6); Mean Corpuscular HGB Conc 32.2 g/dL (31.6-35.5); Mean Corpuscular Hemoglobin 29.8 pg (28.0-33.3); Mean Corpuscular Volume 92.7 fL (83.0-100.0); Mean Platelet Volume 10.1 fL (9.4-12.4); Monocytes # 0.5 K/mcL (0.0-1.3); Monocytes % 11.1 %; Neutrophils # 2.9 K/mcL (1.6-8.9); Platelet Count 184 K/mcL (140-400); Red Blood Count 3.42 M/mcL (3.82-4.97); Red Cell Distribution Width 12.7 % (11.5-14.5)
[2018-05-12 10:22] LABS: Alanine Aminotransferase 67 Units/L (7-52); Albumin/Globulin Ratio 1.2 (1.1-2.2); Alkaline Phosphatase 167 Units/L (34-104); Aspartate Amino Transferase 28 Units/L (13-39); BUN/Creatinine Ratio 12 (6-26); Bilirubin,Total 0.4 mg/dL (0.3-1.0); Blood Urea Nitrogen 7 mg/dL (6-20); Calcium 8.3 mg/dL (8.6-10.3); Carbon Dioxide 27 mEq/L (23-29); Chloride 108 mEq/L (98-107); Globulin 2.5 g/dL (2.4-3.5); Glucose 103 mg/dL (70-105); Osmolality,Calculated 288 (280-300); Potassium 3.7 mEq/L (3.5-5.1); Sodium 140 mEq/L (136-145); Total Protein 5.5 g/dL (6.4-8.9); eGFR For Non-African Americans > 60 (> 60)
[2018-05-12 11:41] VITALS: BP 116/82
--- NOTE | 2018-05-12 15:15 | Discharge Summary ---
Orders not resulted at time of discharge: Pending orders 05/10/18 00:49 Culture,Blood [BC] Stat 05/10/18 01:15 Culture,CSF [RM] Stat Gram Stain [RM] Stat HSV 1 Glycoprotein G IgG CSF Stat HSV 2 Glycoprotein G IgG CSF Stat Date of Encounter: 05/12/18 Time of Encounter: 11:00 - Discharge Diagnosis (1) Urinary tract infection Priority: Primary Status: Acute Qualifiers: Urinary tract infection type: acute cystitis Hematuria presence: with hematuria Qualified Code(s): N30.01 - Acute cystitis with hematuria (2) Septic shock Priority: Primary Status: Resolved (3) Transaminitis Priority: Primary Status: Acute (4) Acute encephalopathy Priority: Primary Status: Resolved Hospital course: Patient is a 47-year-old female who has recently been treated as an outpatient for UTI who presented due to dizziness and not feeling herself. In the ER, patient was found to be febrile and hypotensive unresponsive to fluid resuscitation therefore vasopressor initiated. During patients hospital stay her septic shock resolved with vasopressor and IV antibiotics. Patients transaminases also improved with fluid resuscitation. Patient is medically stable discharged to complete a 5 day course of Cipro. - Time Spent with Patient Total time spent providing and/or coordinating discharge services: Time spent: Less than 30 minutes - Discharge Medications Prescriptions: New Ciprofloxacin [Cipro] 500 mg PO BID 5 Days #10 tablet Home Medications: Ciprofloxacin [Cipro] 500 mg PO BID 5 Days #10 tablet 05/12/18 [Rx] Allergies/Adverse Reactions: Allergy/AdvReac Type Severity Reaction Status Date / Time No Known Allergies Allergy Verified 05/10/18 17:40 Date of admission: 05/10/18 02:45 Primary care physician: PCP NONE - Constitutional Vitals: Temp Pulse Resp BP Pulse Ox 97.5 F L 64 16 116/82 99 05/12/18 11:40 05/12/18 11:40 05/12/18 11:40 05/12/18 11:40 05/12/18 11:40 General appearance: Present: A&O X 3, pleasant, no acute distress Exam: Gen.: Nonacute distress, alert and oriented 3 Skin: Normal color - Patient Status Disposition: Home, Self-Care - Discharge Instructions Instructions: Urinary Tract Infection in Women (DC) Follow Up With: Jane Jacobsen DEFENSIVE SECONDARY COACH [Advanced Practice Nurse] - 05/19/18 9:00 am (Please follow up with this primary care provide as scheduled. Please fill out your new patient packet that you will recieve in the mail. Bring your ID and insurance card with you to your appointment. Please arrive 30mins in advance, making your arrive time at 8:30AM. Thank you!)
--- NOTE | 2018-05-13 10:06 | Electrocardiograph Report ---
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
== END 2018-05-12 17:29 | disposition home or self-care (01) | DRG 720 ==
LOC: 3BNU 20:17 → EMEROOARM 20:17 → SUATTDRO 05-10 02:45 → 2NNU 05-10 03:09 → 2ANU 05-11 18:45
PROVIDERS: ADMIT Internal Medicine; ATTEND Hospitalist